=== PATIENT | female | born 1960 | race Caucasian/White ===

== ENCOUNTER 2019-07-09 20:09 | Inpatient (IN) | payer BC ==
[2019-07-09 20:45] VITALS: BP 134/70; PULSE 76; TEMP 97.4
[2019-07-10] VITALS (13 sets, daily range): BP systolic 100–152; BP diastolic 57–83; PULSE 61–86; TEMP 98–98.5
--- NOTE | 2019-07-10 05:21 | NUR ---
Patient arrived to unit by ambulation. Vitals stable. States pain 8/10 to abdomen. Orders received from Dr. Alaniz and pain medication administered. IVF infusing per orders. Patient received 4mg of morphine as ordered frequently tonchin. Med rec completed and 5 page completed. Ambulates independently to the bathroom. IV started in left forearm. Water given before midnight. NPO after midnight. Will continue to monitor.
--- NOTE | 2019-07-10 08:30 | NUR ---
Patient in bed resting. Alert and oriented x 3. Fluids infusing per orders to left forarm IV. Requests pain meds for pain 8/10 to abdomen. Medications given per orders. Denies further needs at this time.
--- NOTE | 2019-07-10 09:58 | NUR ---
[facility] met with the patient to complete initial intake. The patient lives in [place] with her , Nakia. The patient denies DME use and is independent with ADLs. The patient's PCP is Dr. De Paz and patient receives medications from [facility]. The patient does not have advanced directives in the EMR but states she does have a living will. She was unsure about what else but they would designate her , Nakia. The patient plans to return home at discharge. There are no additional needs at this time.
--- NOTE | 2019-07-10 12:18 | NUR ---
First visit from the beam carrier hauler pusher. No needs right now.
--- NOTE | 2019-07-10 13:06 | NUR ---
Patient down to or by bed
[2019-07-10] MEDS ORDERED: MOTRIN 600600 MG/TAB PO (15:53)
[2019-07-10] MEDS ORDERED: PERCOCET 325 MG1 TA2 PO (15:53)
[2019-07-10] MEDS ORDERED: NEURONTIN100 MG/CAP PO (15:53)
--- NOTE | 2019-07-10 16:21 | NUR ---
Patient up from OR, Drowsy but arouses to voice. Post op VSS. On 2L of oxygen via NC. Lap sites x3 with edges well approximated. No further needs. Will continue to monitor.
--- NOTE | 2019-07-10 18:14 | NUR ---
Patient doing well since up from surgery, requested pain meds for abdominal pain 10/05, medications given per orders. Post op VSS. Up to restroom x 1 assist. Tolerating diet without difficulties. Denies further needs at this time. Will report off to cardiothoracic anesthesia technician.
--- NOTE | 2019-07-10 20:00 | NUR ---
Received report from EMY Shrestha. Alert and oriented x4. C/O to abdomen, rate 8/10, requesting pain meds. PRN 2mg Morphine administered as requested with relief. Meds administered. x3 incision to abdomen without s/s of infection. SCD in place to BLE. INT to LFA intact, flushed, dressing CDI. Denies SOB, on 2LO2NC. Needs met at this time. Call light within reach.
--- NOTE | 2019-07-10 23:33 | NUR ---
Pt requested pain meds for abdomen pain, rate 5/10, states increase in pain with movement. PRN 2mg morphine administered. Scheduled meds administered. Needs met at this time. Call light within reach.
[2019-07-11 00:46] VITALS: BP 119/63; PULSE 71; TEMP 97.9
[2019-07-11 04:18] VITALS: BP 155/81; PULSE 70; TEMP 98
--- NOTE | 2019-07-11 06:26 | NUR ---
Scheduled meds administered as ordered. Needs met. Call light within reach.
--- NOTE | 2019-07-11 08:00 | NUR ---
PATIENT IS A&O. VSS. RATES PAIN IN ABD RATED AT 4-5 ON PAIN SCALE. GAVE PRN PERCOCET, ONE TAB. ABD IS DISTENDED, SOFT AND WITH POSITIVE BOWL SOUNDS. PATIENT PASSING GAS, NO BM YET. HEAD TO TOE ASSESSMENT WNL. PATIENT HOPING TO DISCHARGE HOME LATER TODAY. INDEPENDENT IN ROOM.
[2019-07-11 08:43] VITALS: BP 112/61; PULSE 70; TEMP 98.2
[2019-07-11 11:24] VITALS: BP 121/64; PULSE 75; TEMP 97.9
--- NOTE | 2019-07-11 11:40 | NUR ---
PATIENT DISCHARGING HOME VIA WC TO PERSONAL VEHICLE WHERE IS WAITING. GAVE DISCHARGE INSTRUCTIONS, PRESCRIPTIONS AND F/U APT. ANSWERED ALL QUESTIONS/CONCERNS. TREE EXPERT DC'D IV, COVERED WITH BANDAID. PATIENT DISCHARGED.
--- NOTE | 2019-07-11 11:41 | NUR ---
The patient discharged home today, 07/10 with family support. There are no additional needs at this time.
== END 2019-07-11 11:40 | disposition home or self-care (01) | DRG 355 ==
LOC: MEDICAL 20:09 → SURG 20:22
PROVIDERS: Surgery; ADMIT Surgery
PROC: 8E0W4CZ Robotic Assisted Procedure of Trunk Region, Percutaneous Endoscopic Approach (ICD-10-PCS; 2019-07-10)
PROC: 0WUF4JZ Supplement Abdominal Wall with Synthetic Substitute, Percutaneous Endoscopic Approach (ICD-10-PCS; principal; 2019-07-10 13:30)
DX: K43.0 Incisional hernia with obstruction, without gangrene (principal); I10 Essential (primary) hypertension
CPT/HCPCS: C1781; J0690; J2250; J2270; J2704; J3010; J7120